=== PATIENT | female | born 1950 | race Caucasian/White ===

== ENCOUNTER 2016-10-05 18:00 | Emergency (ER) | payer SELFPAY ==
[~2016-10-05] VITALS: Ht 167.6 cm; Wt 90.0 kg
[~2016-10-05 18:00] MED LIST: BUPR150T3 PO; ESTR1 PO; TYLE3 PO; ZOVI400T15 PO
[2016-10-05 18:03] VITALS: BP 138/71; PULSE 73; RESP 12; TEMP 98.2; O2SAT 95
[2016-10-05] MEDS ORDERED: ASPI81TA81 PO (20:50)
[2016-10-05] MEDS ORDERED: ESTR1TAB PO (20:50)
[2016-10-05] MEDS ORDERED: RANI150T PO (20:50)
[2016-10-05] MEDS ORDERED: CEPH-460 PO (21:23)
[2016-10-05] MEDS ORDERED: IBUP800T23 PO (21:23)
== END 2016-10-05 18:50 | disposition left against medical advice (07) ==
LOC: NED 18:00
DX: Z53.21 Procedure and treatment not carried out due to patient leaving prior to being seen by health care provider (principal)
CPT/HCPCS: 99281

== ENCOUNTER 2016-10-05 19:40 | Emergency (ER) | payer MEDICARE, BC ==
[~2016-10-05] VITALS: Ht 167.6 cm; Wt 90.5 kg
[2016-10-05 19:57] VITALS: BP 123/82; PULSE 69; RESP 18; TEMP 98.4; O2SAT 96
[2016-10-05] MEDS ORDERED: GELATIN 12 MM/7 MM FOAM TOPICAL ONE (20:15)
[2016-10-05] MEDS ORDERED: TETANUS/DIPHTHERIA TOXOID ADULT 0.5 ML VIAL IM ONE (20:30)
[2016-10-05] MEDS ORDERED: ESTR1TAB PO (20:50)
[2016-10-05] MEDS ORDERED: ASPI81TA81 PO (20:50)
[2016-10-05] MEDS ORDERED: RANI150T PO (20:50)
[2016-10-05] MEDS ORDERED: CEPH-460 PO (21:23)
[2016-10-05] MEDS ORDERED: IBUP800T23 PO (21:23)
--- NOTE | 2016-10-05 21:24 | PD ---
HPI Chief Complaint: Laceration/Skin Injury Time Seen by Provider: 20:05 Travel History International Travel<30 days: No Contact w/Intl Traveler<30days: No Traveled to known affect area: No History of Present Illness HPI Patient is 66-year-old female presented to the emergency department evaluation of a laceration to her left finger. Patient was cutting vegetables at home when she cut her finger with a knife. She doesn't remember when her last tetanus vaccine was. She states her pain is a 4 out of 10. She has no other complaints at this time. She denies any numbness or tingling, or loss of function. PFSH Past Medical History Gastrointestinal Disorders: Yes (GERD) Psychiatric: Yes Menopausal: Yes Past Surgical History Section: Yes Hysterectomy: Yes Other Surgery: Yes (FACE LIFT) Social History Alcohol Use: Yes (SOCIALLY) Tobacco Use: No Substance Use: No Allergies-Medications (Allergen,Severity, Reaction): Coded Allergies: No Known Allergies (Verified , 10/05/16) Reported Meds & Prescriptions Reported Meds & Active Scripts Active Reported Aspir-81 (Aspirin) 81 Mg Tabdr 81 Mg PO DAILY Ranitidine (Ranitidine HCl) 150 Mg Tab 150 Mg PO BID Estradiol 1 Mg Tab 1 Mg PO DAILY Review of Systems Except as stated in HPI: all other systems reviewed are Neg Skin: Positive Other (skin avulsion) Physical Exam Narrative GENERAL: Well-nourished, well-developed patient. SKIN: Warm and dry. 1 cm skin avulsion to the lateral aspect of the left second finger. It does not involve the nailbed. Positive radial pulse, brisk for the second capillary refill. HEAD: Normocephalic. EYES: No scleral icterus. No injection or drainage. NECK: Supple, trachea midline. No JVD or lymphadenopathy. CARDIOVASCULAR: Regular rate and rhythm without murmurs, gallops, or rubs. RESPIRATORY: Breath sounds equal bilaterally. No accessory muscle use. GASTROINTESTINAL: Abdomen soft, non-tender, nondistended. MUSCULOSKELETAL: No cyanosis, or edema. BACK: Nontender without obvious deformity. No CVA tenderness. Data Data Last Documented VS Vital Signs Date Time Temp Pulse Resp B/P Pulse Ox O2 Delivery O2 Flow Rate FiO2 10/05/16 19:57 98.4 69 18 123/82 96 Orders Gelatin 12 Mm/7 Mm Top (Gelfoam 12 Mm/7 (10/05/16 20:15) Tetanus/Diphtheria Tox Adult (Tetanus/Di (10/05/16 20:30) MDM Medical Decision Making Medical Screen Exam Complete: Yes Emergency Medical Condition: Yes Interpretation(s) Vital Signs Date Time Temp Pulse Resp B/P Pulse Ox O2 Delivery O2 Flow Rate FiO2 10/05/16 19:57 98.4 69 18 123/82 96 Differential Diagnosis Laceration versus abrasion versus skin avulsion versus other Narrative Course Patient 66-year-old female presenting to emergency for evaluation of a skin avulsion to her left second finger that occurred as result of cutting vegetables at home. Patient's tetanus vaccine was updated emergency department. Patient is neurovascularly intact. Gelfoam was used to control bleeding, after wound was thoroughly cleaned. After Gelfoam was applied patient was monitored in the emergency room to determine hemostasis. Patient was encouraged to keep dressing on for 24 hours. She was encouraged to keep wound clean, dry, covered until wound is well-healed. She is encouraged follow- up with her primary doctor return to emergency department for any new or worsening symptoms. Patient verbalized understanding of these instructions. Patient stable for discharge. Diagnosis Primary Impression: Avulsion of skin of finger without complication Qualified Code: S61.209A - Avulsion of skin of finger without complication, initial encounter Referrals: Primary Care Physician Patient Instructions: General Instructions, Skin Avulsion (ED) Additional Instructions: Follow-up with your primary doctor Return to emergency department for any new or worsening symptoms Take medications as directed Keep wound clean and dry, apply topical antibiotic ointment and nonocclusive dressing. Med/Other Pt SpecificInfo: Prescription(s) given Scripts Ibuprofen 800 Mg [id number] Mg PO Q6HR PRN (PAIN) #40 TAB Ref 0 Prov:Jesenia Rey 10/05/16 Cephalexin (Keflex)500 Mg [id number] Mg PO Q12H 5 Days Ref 0 Prov:Jesenia Rey 10/05/16 Disposition: 01 DISCHARGE HOME Condition: Stable Jesenia Rey Oct 05, 2016 21:24
== END 2016-10-05 21:27 | disposition home or self-care (01) ==
LOC: PHEFT 19:40
DX: S61.209A Unspecified open wound of unspecified finger without damage to nail, initial encounter (principal); Z23 Encounter for immunization; W26.0XXA Contact with knife, initial encounter; W45.8XXA Other foreign body or object entering through skin, initial encounter; Y93.G1 Activity, food preparation and clean up; Y92.010 Kitchen of single-family (private) house as the place of occurrence of the external cause; Y99.8 Other external cause status
CPT/HCPCS: 12001; 90471; 90714